=== PATIENT | male | born 1955 | race Caucasian/White ===

== ENCOUNTER → 2016-09-28 | Outpatient (CLI) | payer BC ==
--- NOTE | 2016-09-28 17:18 | PCVCIMAG ---
APPROVED REPORT Study performed: 09/28/2016 14:31:29 EXAM: Comprehensive 2D, Doppler, and color-flow Echocardiogram Patient Location: Echo lab Status: routine BSA: 2.13 HR: 62 bpmBP: 144/82 mmHg Rhythm: NSR Other Information Study Quality: Adequate Risk Factors: Cardiac Risk Factors: HTN Indications CAD Basal inferior HI, RCA stent 2D Dimensions LVEF(%): 50.24 (>50%) IVSd: 9.80 (7-11mm) LVDd: 51.37 mm PWd: 11.03 (7-11mm) LVDs: 38.18 (25-40mm) Left Atrium: 39.14 (27-40mm) Aortic Root: 35.19 mm LV Single Plane 4CH: 63.05 % LV Single Plane 2CH: 55.58 %Berumen's LVEF: 59.31 % Biplane EF: 60.1 % Volumes Left Atrial Volume (Systole) Single Plane 4CH: 87.46 mLSingle Plane 2CH: 73.20 mL LA ESV Index: 38.00 mL/m2 Aortic Valve AoV Peak Aguilar.: 1.39 m/s AO Peak Gr.: 7.73 mmHgLVOT Max P.60 mmHg LVOT Max V: 1.28 m/s Mitral Valve E/A Ratio: 1.2 MV Decel. Time: 176.73 ms MV E Max Aguilar.: 0.41 m/s MV A Aguilar.: 0.33 m/s IVRT: 117.65 ms Pulmonary Valve PV Peak Aguilar.: 1.05 m/sPV Peak Gr.: 4.38 mmHg Pulmonary Vein P Vein S: 0.40 m/sP Vein A: 0.31 m/s P Vein D: 0.45 m/sP Vein A Dur.: 128.0 msec P Vein S/D Ratio: 0.89 Tricuspid Valve TR Peak Aguilar.: 2.47 m/s TR Peak Gr.: 24.39 mmHg Left Ventricle The left ventricle is normal size. There is hypokinesis of mid to basal inferior segment. There is normal left ventricular wall thickness. Left ventricular systolic function is normal. The left ventricular ejection fraction is within the normal range. LVEF is 55%. Grade I - abnormal relaxation pattern. Right Ventricle The right ventricle is normal size. The right ventricular systolic function is normal. Atria Left atrium is mildly dilated. The right atrium size is normal. Aortic Valve The aortic valve is normal in structure. No aortic regurgitation is present. There is no aortic valvular stenosis. Mitral Valve The mitral valve is normal in structure. Trace mitral regurgitation. No evidence of mitral valve stenosis. Tricuspid Valve The tricuspid valve is normal in structure. Trace tricuspid regurgitation with PAP of 31 mmHg. Pulmonic Valve The pulmonary valve is normal in structure. There is no pulmonic valvular regurgitation. Great Vessels The aortic root is normal in size. IVC is normal in size and collapses with >50% inspiration Pericardium There is no pericardial effusion. <Conclusion> The left ventricle is normal size. Left ventricular systolic function is normal. There is hypokinesis of mid to basal inferior segment. Grade I - abnormal relaxation pattern. The right ventricle is normal size. Left atrium is mildly dilated. The aortic valve is normal in structure. Trace mitral regurgitation. Trace tricuspid regurgitation with PAP of 31 mmHg.
== END | disposition home or self-care (01) ==
LOC: PCVCIMAG 14:35
PROVIDERS: ATTEND Internal Medicine Cardiovascular Disease
DX: I08.1 Rheumatic disorders of both mitral and tricuspid valves (principal); I25.10 Atherosclerotic heart disease of native coronary artery without angina pectoris; I10 Essential (primary) hypertension; E78.00 Pure hypercholesterolemia, unspecified; I25.2 Old myocardial infarction; F17.200 Nicotine dependence, unspecified, uncomplicated; Z95.5 Presence of coronary angioplasty implant and graft; Z79.82 Long term (current) use of aspirin
CPT/HCPCS: 93306; G0463

== ENCOUNTER → 2017-10-04 | Outpatient (CLI) | payer BC ==
--- NOTE | 2017-10-06 09:22 | PCVCIMAG ---
APPROVED REPORT Study performed: 10/04/2017 15:24:58 Exam: Stress Echocardiogram Indication: CAD s/p MIPCI,Stent to RCA Patient Location: Echo lab Stress Nurse: Jodi Gillespie RN Room #: 2 Status: routine Ht: 6 ft 0 in HR: 66 bpm BP: 134/82 mmHg Medical History Medical History: CAD s/p MT, Stent to RCA Cardiac Risk Factors: HTN, Hyperlipidemia Previous Cardiac Procedures: PCI,Myocardial infarction Exercise History: Physically active Procedure The patient underwent an Exercise Stress Test using the Padilla Protocol. Blood pressure, heart rate, and EKG were monitored. An Echocardiogram was performed by medical imaging technician in four stages in quad fashion. At peak stress, four selected images were obtained and placed side by side with resting images for comparison. Stress Test Details Stress Test: Exercise stress testing was performed using a Padilla protocol. HR Resting HR: 62 bpmMax Heart Rate (APMHR): 156 bpm Max HR Achieved: 151 bpmTarget HR (85% APMHR): 132 bpm % of APMHR: 96 Recovery HR: 81 bpm HR response to stress: Normal HR response to stress BP Resting BP: 134/82 mmHg Max BP: 192/70 mmHg Recovery BP: 210/85 mmHg ECG Resting ECG: Sinus Rhythm, nonspecific ST-T abnormalities Stress ECG: Sinus Rhythm, nonspecific ST-T abnormalities ST Change: Nondiagnostic resting ST abnormalities Arrhythmia: None Recovery ECG: Sinus Rhythm, nonspecific ST-T abnormalities Recovery Arrhythmia: None Clinical Reason for Termination: Maximal effort Stress Symptoms: none Exercise duration: 13 min sec Highest Stage Achieved: Stage 5: 5.0 mph at 18% grade. Exercise capacity: 17.2 METs Overall Exercise Capacity for Age: Excellent Scale: Active Angina Score: None No complications. Stress ECG Conclusion The patient exercised according to the PADILLA protocol for 13:00 mins; achieving a work level of 17.2 METS. The resting heart rate of 62 bpm choco to a maximum heart rate of 151 bpm. This value [id number] % of the maximal, age-predicted heart rate. The resting blood pressure of 134/82 mmHg, chcoo to a maximum blood pressure of 210/85 mmHg. The exercise test was stopped due to fatigue. Pre-Stress Echo The resting Echocardiogram showed normal left ventricular contractility with an estimated Ejection Fraction of about 55-60%. Normal wall motion in all segments on baseline images. Post-Stress Echo The stress Echocardiogram showed normal left ventricular contractility with an estimated Ejection Fraction of about 65-70%. Normal augmentation of wall motion in all segments on post stress images. Clinical No clinical or ECG evidence for ischemia. Conclusion Clinical Response: Non-ischemic Exercise Capacity: Superior Stress ECG Response: Indeterminant Stress Echo Images: Non-ischemic No clinical or echocardiographic evidence for ischemia. No echocardiographic evidence for exercise induced ischemia. Normal stress echocardiogram with maximal exercise stress. <Conclusion> No clinical or echocardiographic evidence for ischemia. No echocardiographic evidence for exercise induced ischemia. Normal stress echocardiogram with maximal exercise stress.
== END | disposition home or self-care (01) ==
LOC: PCVCIMAG 15:29
PROVIDERS: ATTEND Internal Medicine Cardiovascular Disease
DX: I25.10 Atherosclerotic heart disease of native coronary artery without angina pectoris (principal); I10 Essential (primary) hypertension; E78.5 Hyperlipidemia, unspecified
CPT/HCPCS: 93325; 93351